=== PATIENT | male | born 1975 | race African-American/Black ===

== ENCOUNTER 2017-08-15 21:14 | Emergency (ER) | payer OTHER ==
[~2017-08-15] VITALS: Ht 167.6 cm; Wt 87.7 kg
[2017-08-16 00:17] VITALS: BP 127/77
== END 2017-08-16 00:18 | disposition home or self-care (01) ==
LOC: EME 21:14
DX: M79.652 Pain in left thigh (principal); R51 Headache
CPT/HCPCS: 93971; 99281; 99284; J1885; Q0164